=== PATIENT | female | born 1955 | race African-American/Black ===

== ENCOUNTER 2017-08-08 05:37 | Inpatient (IN) ==
[2017-08-01 12:12] LABS: Basophils # 0.1 10*3/uL (0.0-0.2); Basophils % 0.7 % (0.0-0.8); Eosinophils # 0.2 10*3/uL (0.0-0.87); Hematocrit 36.5 VOL% (35.7-47.0); Hemoglobin 12.5 GM/DL (12.0-16.0); Immature Granulocytes % 0.1 %; Immature Granulocytes Absolute 0.01 #; Lymphocytes # 4.1 10*3/uL (1.4-4.0); Lymphocytes % 55.6 % (21.3-54.2); Mean Corpuscular HGB Conc 34.2 GM/DL (32-36); Mean Corpuscular Hemoglobin 32 PG (27-34); Mean Corpuscular Volume 92.9 FL (87-102); Mean Platelet Volume 10.3 FL (9.6-12.0); Monocytes # 0.6 10*3/uL (0.11-0.8); Monocytes % 7.4 % (1.7-12.7); Neutrophils # 2.5 10*3/uL (1.4-7.4); Neutrophils % 34.2 % (38.7-73.9); Platelet Count 227 T/CUMM (130-400); Red Blood Count 3.93 MC/CUMM (3.8-5.5); Red Cell Distribution Width 13.6 % (9.3-17.3); White Blood Count 7.4 T/CUMM (4-12)
[2017-08-01 12:21] LABS: INR 0.9; Partial Thromboplastin Time 25.8 SECS (0-40)
[2017-08-01 12:31] LABS: Apearance,Urine CLEAR (Clear); Bilirubin,Urine Negative (Negative); Blood, Urine Negative (Negative); Glucose,Urine (UA) Negative (Negative); Ketones,Urine Negative (Negative); Mucus,Urine Occasional /LPF (Occasional); Nitrite,Urine Negative (Negative); Protein,Urine Negative; RBC,Urine <1 /HPF (0-4); Squamous Epithelial Cell,Urine Occasional /HPF (0-10); Urine Color Yellow (Yellow); Urine Specific Gravity 1.031 (1.001-1.035); Urine Urobilinogen < 2.0 EU/DL (0.2-1.0); WBC,Urine <1 /HPF (0-6)
[2017-08-01 12:43] LABS: Alanine Aminotransferase 24 U/L (13-56); Albumin 3.8 G/DL (3.4-5.0); Alkaline Phosphatase 78 U/L (45-117); Aspartate Amino Transferase 18 U/L (0-37); Bilirubin,Total < 0.39 MG/DL (0.2-1.0); Blood Urea Nitrogen 13 MG/DL (7-18); Calcium 9.4 MG/DL (8.5-10.1); Glucose 94 MG/DL (74-106); Osmolality,Calculated 280.3 MOS/KG (273-304); Potassium 3.9 MMOL/L (3.5-5.1); Sodium 141 MMOL/L (136-145); Total Protein 7.2 G/DL (6.4-8.3)
[2017-08-01 12:52] LABS: Atypical Lymphocytes Few
[2017-08-01 12:53] LABS: Hypochromasia 1+
[2017-08-01 13:01] LABS: Eosinophils 2 % (0-10); Lymphocytes 60 % (20-55); Segmented Neutrophils 31 % (50-85); Total Cells Counted 100
[2017-08-08] MEDS ORDERED: VANCOMYCIN 1,000 MG VIAL ONE (06:10)
[2017-08-08] MEDS ORDERED: ceFAZolin 1,000 MG VIAL ONE ×2 (06:10→10:24)
[2017-08-08] MEDS ORDERED: VANCOMYCIN INJ 1,000 MG in SODIUM CHLORIDE 0.9% 250 ML IV ONE ×2 (07:00→18:00)
[2017-08-08] MEDS ORDERED: ceFAZolin 1,000 MG in SYRINGE 1 EACH IV ONE (07:00)
[2017-08-08] MEDS ORDERED: LACTATED RINGERS 1,000 ML IV SCH (08:00)
[2017-08-08] MEDS ORDERED: FAMOTIDINE 20 MG TABLET PO ONE (08:24)
[2017-08-08] MEDS ORDERED: DIAZEPAM 5 MG TABLET PO ONE (08:24)
[2017-08-08] MEDS ORDERED: ONDANSETRON 4 MG/2 ML VIAL IV ONE (08:25)
[2017-08-08] MEDS ORDERED: ALBUTEROL/IPRATROPIUM 3 ML NEB RESP TX ONE (08:25)
[2017-08-08] MEDS ORDERED: FAMOTIDINE 20 MG TABLET ONE (08:33)
[2017-08-08] MEDS ORDERED: DIAZEPAM 5 MG TABLET ONE (08:33)
[2017-08-08] MEDS ORDERED: ONDANSETRON 4 MG/2 ML VIAL ONE (08:34)
[2017-08-08] MEDS ORDERED: ALBUTEROL 1.25 MG/3 ML NEB RESP TX PRN (10:03)
[2017-08-08] MEDS ORDERED: ZALEPLON 5 MG CAPSULE PO PRN (10:03)
[2017-08-08] MEDS ORDERED: ALBUTEROL 2.5 MG/3 ML NEB RESP TX PRN (10:03)
[2017-08-08] MEDS ORDERED: HYDROmorphone 2 MG/1 ML VIAL IV PRN ×2 (10:06)
[2017-08-08] MEDS ORDERED: diphenhydrAMINE CAP 25 MG CAPSULE PO PRN (10:06)
[2017-08-08] MEDS ORDERED: ONDANSETRON 4 MG/2 ML VIAL IV PRN (10:06)
[2017-08-08] MEDS ORDERED: oxyCODONE/ACETAMINOPHEN 5-325 MG TABLET PO PRN ×2 (10:06)
[2017-08-08] MEDS ORDERED: ceFAZolin 2,000 MG in PREMIX 1 EACH IV ONE (10:10)
[2017-08-08] MEDS ORDERED: HYDROmorphone 2 MG/1 ML VIAL ONE ×2 (11:57→12:34)
[2017-08-08] MEDS ORDERED: PROPOFOL 200 MG/20 ML VIAL IV ONE (12:08)
[2017-08-08] MEDS ORDERED: MIDAZOLAM 2 MG/2 ML VIAL ONE ×2 (12:08→12:33)
[2017-08-08] MEDS ORDERED: fentaNYL 100 MCG/2 ML VIAL ONE (12:08)
[2017-08-08] MEDS ORDERED: LACTATED RINGERS 1,000 ML IV ONE (12:09)
[2017-08-08] MEDS ORDERED: SODIUM CHLORIDE 0.9% 200 ML IV ONE (12:09)
[2017-08-08] MEDS ORDERED: ACETAMINOPHEN 1,000 MG/100 ML VIAL IV ONE (12:09)
[2017-08-08] MEDS ORDERED: TRANEXAMIC ACID 1,000 MG/10 ML VIAL IV ONE (12:10)
[2017-08-08] MEDS ORDERED: MEPERIDINE 25 MG/1 ML VIAL ONE (12:12)
[2017-08-08] MEDS ORDERED: MEPERIDINE 25 MG/1 ML VIAL IV PRN (12:13)
[2017-08-08 12:14] LABS: Apearance,Urine CLEAR (Clear); Bilirubin,Urine Negative (Negative); Blood, Urine Negative (Negative); Glucose,Urine (UA) Negative (Negative); Ketones,Urine 5 mg/dL (Negative); Mucus,Urine Occasional /LPF (Occasional); Nitrite,Urine Negative (Negative); Protein,Urine Negative; RBC,Urine <1 /HPF (0-4); Urine Color Yellow (Yellow); Urine Specific Gravity 1.021 (1.001-1.035); Urine Urobilinogen < 2.0 EU/DL (0.2-1.0)
[2017-08-08] MEDS: HYDROmorphone 2 MG/1 ML VIAL IV PRN ×4 (12:35→12:50)
[2017-08-08] MEDS: LACTATED RINGERS 1,000 ML IV SCH (13:14)
[2017-08-08] MEDS: IPRATROPIUM 500 MCG/2.5 ML NEB RESP TX SCH ×2 (14:03→19:24)
[2017-08-08] MEDS: KETOROLAC 30 MG/1 ML VIAL IV SCH ×3 (14:31→23:33)
[2017-08-08] MEDS: ACETAMINOPHEN 500 MG TABLET PO SCH ×2 (14:49→21:58)
[2017-08-08] MEDS: ceFAZolin 2,000 MG in PREMIX 1 EACH IV SCH ×2 (14:51→22:02)
[2017-08-08] MEDS ORDERED: LIDOCAINE 5% PATCH TRANSDERM PRN (15:00)
[2017-08-08] MEDS: BACLOFEN 10 MG TABLET PO SCH ×2 (17:15→21:59)
[2017-08-08] MEDS: oxyCODONE IR 5 MG TABLET PO PRN ×2 (17:15→21:56)
[2017-08-08] MEDS: PANTOPRAZOLE 40 MG TABLET PO SCH (19:59)
[2017-08-08] MEDS: MAGNESIUM OXIDE 400 MG TABLET PO SCH (21:57)
[2017-08-08] MEDS: ATORVASTATIN 40 MG TABLET PO SCH (21:59)
[2017-08-08] MEDS: DOCUSATE SODIUM 100 MG CAPSULE PO SCH (22:00)
[2017-08-08] MEDS: buPROPion SR 150 MG TABLET PO SCH (22:01)
[2017-08-08] MEDS: FAMOTIDINE 20 MG TABLET PO SCH (22:01)
[2017-08-08] MEDS: NITROGLYCERIN SL 0.4 MG TABLET SL PRN ×2 (23:32→23:37)
[2017-08-09] MEDS: IPRATROPIUM 500 MCG/2.5 ML NEB RESP TX SCH ×4 (00:57→19:40)
[2017-08-09] MEDS: LACTATED RINGERS 1,000 ML IV SCH ×2 (02:10→08:26)
[2017-08-09] MEDS: oxyCODONE IR 5 MG TABLET PO PRN ×4 (03:10→19:24)
[2017-08-09] MEDS: ACETAMINOPHEN 500 MG TABLET PO SCH ×2 (03:14→12:10)
[2017-08-09] MEDS: FONDAPARINUX 2.5 MG/0.5 ML SYRINGE SUBCUT SCH (04:55)
[2017-08-09] MEDS: KETOROLAC 30 MG/1 ML VIAL IV SCH (04:57)
[2017-08-09] MEDS: PANTOPRAZOLE 40 MG TABLET PO SCH ×2 (06:48→15:43)
[2017-08-09] MEDS: LEVOTHYROXINE 50 MCG TABLET PO SCH (06:48)
[2017-08-09 07:11] LABS: Basophils % 0.4 % (0.0-0.8); Eosinophils # 0.1 10*3/uL (0.0-0.87); Eosinophils % 0.9 % (0.00-10.9); Hematocrit 32.8 VOL% (35.7-47.0); Hemoglobin 11.3 GM/DL (12.0-16.0); Immature Granulocytes % 0.3 %; Immature Granulocytes Absolute 0.03 #; Lymphocytes # 2.2 10*3/uL (1.4-4.0); Lymphocytes % 21.8 % (21.3-54.2); Mean Corpuscular HGB Conc 34.5 GM/DL (32-36); Mean Corpuscular Hemoglobin 32 PG (27-34); Mean Corpuscular Volume 92.7 FL (87-102); Mean Platelet Volume 11.3 FL (9.6-12.0); Monocytes # 0.9 10*3/uL (0.11-0.8); Monocytes % 9.2 % (1.7-12.7); Neutrophils # 6.9 10*3/uL (1.4-7.4); Neutrophils % 67.4 % (38.7-73.9); Platelet Count 200 T/CUMM (130-400); Red Blood Count 3.54 MC/CUMM (3.8-5.5); Red Cell Distribution Width 13.3 % (9.3-17.3); White Blood Count 10.2 T/CUMM (4-12)
[2017-08-09 07:41] LABS: Calcium 8.7 MG/DL (8.5-10.1); Osmolality,Calculated 277.4 MOS/KG (273-304); Potassium 3.7 MMOL/L (3.5-5.1)
[2017-08-09] MEDS: BACLOFEN 10 MG TABLET PO SCH ×3 (10:30→20:30)
[2017-08-09] MEDS: DILTIAZEM CD 240 MG CAPSULE PO SCH (10:30)
[2017-08-09] MEDS: DOCUSATE SODIUM 100 MG CAPSULE PO SCH ×2 (10:30→20:30)
[2017-08-09] MEDS: VENLAFAXINE XR 75 MG CAPSULE PO SCH (10:30)
[2017-08-09] MEDS: FAMOTIDINE 20 MG TABLET PO SCH ×2 (10:31→20:30)
[2017-08-09] MEDS: buPROPion SR 150 MG TABLET PO SCH ×2 (10:31→20:30)
[2017-08-09] MEDS: OXYBUTYNIN XL 10 MG TABLET PO SCH (10:31)
[2017-08-09] MEDS: MAGNESIUM OXIDE 400 MG TABLET PO SCH ×2 (10:31→20:30)
[2017-08-09] MEDS: OMEGA 3 ACID ETHYL ESTERS 1 GM CAPSULE PO SCH (10:31)
[2017-08-09] MEDS: ACETAMINOPHEN 325 MG TABLET PO PRN ×2 (10:31→20:33)
[2017-08-09] MEDS: MONTELUKAST 10 MG TABLET PO SCH (10:31)
[2017-08-09] MEDS: MULTIVITAMIN (CENTRUM) TABLET PO SCH (10:31)
[2017-08-09] MEDS: FLUTICASONE 50 MCG NASAL SPRAY 16 GM BOTTLE BOTH NARES SCH (10:32)
[2017-08-09] MEDS: NYSTATIN/TRIAMCINOLONE CREAM 15 GM TUBE TOP SCH (10:32)
[2017-08-09] MEDS: hydroCHLOROthiazide 12.5 MG CAPSULE PO SCH (10:32)
[2017-08-09] MEDS: CELECOXIB 200 MG CAPSULE PO SCH (15:43)
[2017-08-09] MEDS: ATORVASTATIN 40 MG TABLET PO SCH (20:30)
[2017-08-10] MEDS: IPRATROPIUM 500 MCG/2.5 ML NEB RESP TX SCH ×4 (00:13→20:18)
[2017-08-10] MEDS: oxyCODONE IR 5 MG TABLET PO PRN ×4 (00:39→20:33)
[2017-08-10] MEDS: FONDAPARINUX 2.5 MG/0.5 ML SYRINGE SUBCUT SCH (04:17)
[2017-08-10 05:10] LABS: Basophils # 0.1 10*3/uL (0.0-0.2); Basophils % 0.5 % (0.0-0.8); Eosinophils # 0.2 10*3/uL (0.0-0.87); Eosinophils % 1.7 % (0.00-10.9); Hematocrit 30.8 VOL% (35.7-47.0); Hemoglobin 10.7 GM/DL (12.0-16.0); Immature Granulocytes % 0.3 %; Immature Granulocytes Absolute 0.03 #; Lymphocytes % 31.5 % (21.3-54.2); Mean Corpuscular HGB Conc 34.7 GM/DL (32-36); Mean Corpuscular Hemoglobin 32 PG (27-34); Mean Corpuscular Volume 93.3 FL (87-102); Mean Platelet Volume 11.1 FL (9.6-12.0); Monocytes # 0.9 10*3/uL (0.11-0.8); Monocytes % 9.4 % (1.7-12.7); Neutrophils # 5.5 10*3/uL (1.4-7.4); Neutrophils % 56.6 % (38.7-73.9); Platelet Count 175 T/CUMM (130-400); Red Cell Distribution Width 13.3 % (9.3-17.3); White Blood Count 9.6 T/CUMM (4-12)
[2017-08-10] MEDS: LEVOTHYROXINE 50 MCG TABLET PO SCH (06:07)
[2017-08-10] MEDS: MAGNESIUM HYDROXIDE SUSP 30 ML UDCUP PO PRN ×2 (07:07→15:46)
[2017-08-10] MEDS: BACLOFEN 10 MG TABLET PO SCH ×3 (08:49→20:32)
[2017-08-10] MEDS: OXYBUTYNIN XL 10 MG TABLET PO SCH (08:49)
[2017-08-10] MEDS: buPROPion SR 150 MG TABLET PO SCH ×2 (08:49→20:32)
[2017-08-10] MEDS: FAMOTIDINE 20 MG TABLET PO SCH ×2 (08:49→20:32)
[2017-08-10] MEDS: hydroCHLOROthiazide 12.5 MG CAPSULE PO SCH (08:49)
[2017-08-10] MEDS: CELECOXIB 200 MG CAPSULE PO SCH (08:49)
[2017-08-10] MEDS: DOCUSATE SODIUM 100 MG CAPSULE PO SCH ×2 (08:49→20:32)
[2017-08-10] MEDS: VENLAFAXINE XR 75 MG CAPSULE PO SCH (08:49)
[2017-08-10] MEDS: PANTOPRAZOLE 40 MG TABLET PO SCH ×2 (08:49→15:47)
[2017-08-10] MEDS: DILTIAZEM CD 240 MG CAPSULE PO SCH (08:49)
[2017-08-10] MEDS: MULTIVITAMIN (CENTRUM) TABLET PO SCH (08:49)
[2017-08-10] MEDS: MAGNESIUM OXIDE 400 MG TABLET PO SCH ×2 (08:49→20:32)
[2017-08-10] MEDS: NYSTATIN/TRIAMCINOLONE CREAM 15 GM TUBE TOP SCH (08:50)
[2017-08-10] MEDS: FLUTICASONE 50 MCG NASAL SPRAY 16 GM BOTTLE BOTH NARES SCH (08:50)
[2017-08-10] MEDS: MONTELUKAST 10 MG TABLET PO SCH (08:50)
[2017-08-10] MEDS: OMEGA 3 ACID ETHYL ESTERS 1 GM CAPSULE PO SCH (08:50)
[2017-08-10] MEDS: LACTULOSE 20 GM/30 ML UDCUP PO PRN (19:15)
[2017-08-10] MEDS: ONDANSETRON 4 MG TABLET PO PRN (19:15)
[2017-08-10] MEDS: ATORVASTATIN 40 MG TABLET PO SCH (20:32)
[2017-08-11] MEDS: FONDAPARINUX 2.5 MG/0.5 ML SYRINGE SUBCUT SCH (04:25)
[2017-08-11 04:48] LABS: Basophils # 0.1 10*3/uL (0.0-0.2); Basophils % 0.5 % (0.0-0.8); Eosinophils # 0.2 10*3/uL (0.0-0.87); Eosinophils % 1.9 % (0.00-10.9); Hematocrit 29.1 VOL% (35.7-47.0); Hemoglobin 10.2 GM/DL (12.0-16.0); Immature Granulocytes % 0.6 %; Immature Granulocytes Absolute 0.06 #; Lymphocytes # 3.3 10*3/uL (1.4-4.0); Lymphocytes % 32.6 % (21.3-54.2); Mean Corpuscular HGB Conc 35.1 GM/DL (32-36); Mean Corpuscular Hemoglobin 33 PG (27-34); Mean Corpuscular Volume 93.9 FL (87-102); Mean Platelet Volume 11.5 FL (9.6-12.0); Monocytes % 10.1 % (1.7-12.7); Neutrophils # 5.5 10*3/uL (1.4-7.4); Neutrophils % 54.3 % (38.7-73.9); Platelet Count 187 T/CUMM (130-400); Red Cell Distribution Width 13.8 % (9.3-17.3); White Blood Count 10.2 T/CUMM (4-12)
[2017-08-11] MEDS: LACTULOSE 20 GM/30 ML UDCUP PO PRN (05:26)
[2017-08-11] MEDS: LEVOTHYROXINE 50 MCG TABLET PO SCH (06:16)
[2017-08-11] MEDS: OMEGA 3 ACID ETHYL ESTERS 1 GM CAPSULE PO SCH (08:18)
[2017-08-11] MEDS: VENLAFAXINE XR 75 MG CAPSULE PO SCH (08:18)
[2017-08-11] MEDS: FAMOTIDINE 20 MG TABLET PO SCH (08:18)
[2017-08-11] MEDS: MAGNESIUM OXIDE 400 MG TABLET PO SCH (08:18)
[2017-08-11] MEDS: BACLOFEN 10 MG TABLET PO SCH ×2 (08:18→14:00)
[2017-08-11] MEDS: buPROPion SR 150 MG TABLET PO SCH (08:18)
[2017-08-11] MEDS: MONTELUKAST 10 MG TABLET PO SCH (08:18)
[2017-08-11] MEDS: ONDANSETRON 4 MG TABLET PO PRN (08:18)
[2017-08-11] MEDS: OXYBUTYNIN XL 10 MG TABLET PO SCH (08:18)
[2017-08-11] MEDS: DILTIAZEM CD 240 MG CAPSULE PO SCH (08:18)
[2017-08-11] MEDS: DOCUSATE SODIUM 100 MG CAPSULE PO SCH (08:18)
[2017-08-11] MEDS: hydroCHLOROthiazide 12.5 MG CAPSULE PO SCH (08:18)
[2017-08-11] MEDS: MULTIVITAMIN (CENTRUM) TABLET PO SCH (08:18)
[2017-08-11] MEDS: CELECOXIB 200 MG CAPSULE PO SCH (08:18)
[2017-08-11] MEDS: PANTOPRAZOLE 40 MG TABLET PO SCH (08:19)
[2017-08-11] MEDS: oxyCODONE IR 5 MG TABLET PO PRN ×2 (08:19→14:00)
[2017-08-11] MEDS: FLUTICASONE 50 MCG NASAL SPRAY 16 GM BOTTLE BOTH NARES SCH (08:22)
[2017-08-11] MEDS: NYSTATIN/TRIAMCINOLONE CREAM 15 GM TUBE TOP SCH (08:24)
[2017-08-11] MEDS: IPRATROPIUM 500 MCG/2.5 ML NEB RESP TX SCH ×2 (09:36→09:37)
[2017-08-11] MEDS: MAGNESIUM HYDROXIDE SUSP 30 ML UDCUP PO PRN (10:17)
[2017-08-11 11:39] VITALS: BP 105/78
[2017-08-11] MEDS ORDERED: SODIUM PHOSPHATE ENEMA 133 ML BOTTLE RECTAL ONE (11:48)
== END 2017-08-11 15:15 | disposition swing bed (61) | DRG 470 ==
LOC: N.OR 05:37 → N.SDSINP 05:44 → N.3E 10:06
PROVIDERS: ADMIT Orthopaedic Surgery; ATTEND Orthopaedic Surgery